=== PATIENT | female | born 1935 | race Caucasian/White ===

== ENCOUNTER 2017-01-31 07:13 | Inpatient (IN) | payer MEDICARE, OTHER ==
[2017-01-31] VITALS (17 sets, daily range): BP systolic 110–170; BP diastolic 51–113; PULSE 64–167; RESP 14–26; TEMP 98.4–98.9; O2SAT 95–98
[~2017-01-31] VITALS: Ht 154.9 cm; Wt 40.5 kg
[~2017-01-31 07:13] MED LIST: LEVA500T PO; Z.0.NO CURRENT MEDS
[2017-01-31] MEDS ORDERED: ACET500C PO (07:25)
[2017-01-31] MEDS ORDERED: DILTIAZEM HCL 25 MG/5 ML VIAL IV ONE (07:45)
[2017-01-31 07:48] LABS: AUTOMATED NEUTROPHIL # 9.2 TH/MM3 (1.8-7.7); BASOPHIL # 0.2 TH/MM3 (0-0.2); BASOPHIL % 1.6 % (0.0-2.0); EOSINOPHIL # 0.1 TH/MM3 (0-0.4); HEMATOCRIT 40.2 % (35.0-46.0); LYMPH % 10.3 % (9.0-44.0); LYMPHOCYTE # 1.1 TH/MM3 (1.0-4.8); MEAN CELL VOLUME 102.4 FL (80.0-100.0); MEAN CORPUSCULAR HEMOGLOBIN 33.8 PG (27.0-34.0); MONO % 4.3 % (0.0-8.0); NEUT % 82.8 % (16.0-70.0); PLATELET COUNT 243 TH/MM3 (150-450); RED BLOOD COUNT 3.93 MIL/MM3 (4.00-5.30); RED CELL DISTRIBUTION WIDTH 15.3 % (11.6-17.2); WHITE BLOOD COUNT 11.1 TH/MM3 (4.0-11.0)
--- NOTE | 2017-01-31 07:48 | PD ---
HPI Chief Complaint: General Weakness Time Seen by Provider: 07:29 Travel History International Travel<30 days: No Contact w/Intl Traveler<30days: No Traveled to known affect area: No History of Present Illness HPI This patient is brought in by her daughter and her sister. This patient for many months has been failing to thrive. She eats poorly and barely speaks barely gets out of bed. She has refused to go to any physician. She hasn't seen a physician in years. She falls frequently. She fell yesterday and hit the left side of her forehead. She arrives in A. fib with RVR with a rate of 170. She is on a helpful in providing any history or review of systems. Symptoms to look severe. Duration is months gradual worsening. No alleviating factors PFSH Past Medical History Medical History: Denies Significant Hx Cancer: No Cardiovascular Problems: No Diminished Hearing: No Endocrine: No Gastrointestinal Disorders: Yes (HERE FOR ?UGI BLEED (CGE)) Genitourinary: No Immune Disorder: No Musculoskeletal: No Neurologic: No Psychiatric: No Reproductive: No Respiratory: No Influenza Vaccination: No ?: Not Past Surgical History Surgical History: No Previous Surgery Gynecologic Surgery: Yes (HYSTERECTOMY) Other Surgery: Yes Social History Alcohol Use: Yes (3 BEERS DAILY) Tobacco Use: Yes (1/2 PPD) Substance Use: No Allergies-Medications (Allergen,Severity, Reaction): Coded Allergies: No Known Allergies (Unverified , 01/31/17) Reported Meds & Prescriptions Reported Meds & Active Scripts Active Reported Acetaminophen 500 Mg Cap 500 Mg PO Q4-6H PRN Review of Systems ROS Limitations: Clinical Condition, Uncooperative, Poor Historian Physical Exam Narrative GENERAL: Very malnourished and cachectic patient in no apparent distress. SKIN: Focused skin assessment reveals no rash and nodules. Skin is Warm and dry. She has several old bruises. She has a large ulcerated area over the distal right tibia. It looks chronic, somewhat necrotic. There is a very much smaller area on the left side. HEAD: Old wound on her left brow with some faded bruising on the right forehead. Normocephalic. EYES: Pupils equal and round. No scleral icterus. No injection or drainage. ENT: No nasal bleeding or discharge. Mucous membranes pink and moist. NECK: Trachea midline. No JVD. CARDIOVASCULAR: Irregularly irregular rhythm. No murmur appreciated. Rate 170 RESPIRATORY: No accessory muscle use. Clear to auscultation. Breath sounds equal bilaterally. GASTROINTESTINAL: Abdomen soft, non-tender, nondistended. Hepatic and splenic margins not palpable. MUSCULOSKELETAL: No obvious deformities. No clubbing. No cyanosis. No edema. NEUROLOGICAL: Awake and follows commands to some degree. No obvious cranial nerve deficits. Difficult to accurately gauge motor strength or sensation due to her limited participation. Speaks a few brief one-word answers. She did say her name. PSYCHIATRIC: Depressed mood and flat affect; insight and judgment poor . Data Data Last Documented VS Vital Signs Date Time Temp Pulse Resp B/P Pulse Ox O2 Delivery O2 Flow Rate FiO2 01/31/17 08:55 135 16 140/79 98 Room Air 01/31/17 07:22 98.9 Orders Diltiazem Inj (Cardizem Inj) (01/31/17 07:45) Iv Access Insert/Monitor (01/31/17 07:37) Complete Blood Count With Diff (01/31/17 07:37) Comprehensive Metabolic Panel (01/31/17 07:37) Prothrombin Time / Inr (Pt) (01/31/17 07:37) Act Partial Throm Time (Ptt) (01/31/17 07:37) Urinalysis - C+S If Indicated (01/31/17 07:37) Ct Brain W/O Iv Contrast(Rout) (01/31/17 ) Creatine Kinase (Cpk) (01/31/17 07:40) Thyroid Stimulating Hormone (01/31/17 07:40) Sodium Chlor 0.9% 1000 Ml Inj (Ns 1000 M (01/31/17 08:00) CKMB (01/31/17 07:43) CKMB% (01/31/17 07:43) Cath For Specimen (01/31/17 08:07) Diltiazem Inj (Cardizem Inj) (01/31/17 08:15) Labs Laboratory Tests Test 01/31/17 01/31/17 07:43 08:02 White Blood Count 11.1 TH/MM3 Red Blood Count 3.93 MIL/MM3 Hemoglobin 13.3 GM/DL Hematocrit 40.2 % Mean Corpuscular Volume 102.4 FL Mean Corpuscular Hemoglobin 33.8 PG Mean Corpuscular Hemoglobin 33.0 % Concent Red Cell Distribution Width 15.3 % Platelet Count 243 TH/MM3 Mean Platelet Volume 8.4 FL Neutrophils (%) (Auto) 82.8 % Lymphocytes (%) (Auto) 10.3 % Monocytes (%) (Auto) 4.3 % Eosinophils (%) (Auto) 1.0 % Basophils (%) (Auto) 1.6 % Neutrophils # (Auto) 9.2 TH/MM3 Lymphocytes # (Auto) 1.1 TH/MM3 Monocytes # (Auto) 0.5 TH/MM3 Eosinophils # (Auto) 0.1 TH/MM3 Basophils # (Auto) 0.2 TH/MM3 CBC Comment DIFF FINAL Differential Comment Prothrombin Time 10.8 SEC Prothromb Time International 1.0 RATIO Ratio Activated Partial 27.9 SEC Thromboplast Time Sodium Level 143 MEQ/L Potassium Level 3.9 MEQ/L Chloride Level 106 MEQ/L Carbon Dioxide Level 29.5 MEQ/L Anion Gap 8 MEQ/L Blood Urea Nitrogen 23 MG/DL Creatinine 0.62 MG/DL Estimat Glomerular Filtration 93 ML/MIN Rate Random Glucose 139 MG/DL Calcium Level 9.3 MG/DL Total Bilirubin 0.7 MG/DL Aspartate Amino Transf 51 U/L (AST/SGOT) Alanine Aminotransferase 40 U/L (ALT/SGPT) Alkaline Phosphatase 80 U/L Total Creatine Kinase 593 U/L Creatine Kinase MB 8.8 NG/ML Creatine Kinase MB % 1.5 % Total Protein 7.4 GM/DL Albumin 3.4 GM/DL Thyroid Stimulating Hormone 2.890 uIU/ML 3rd Gen Urine Collection Type CATH Urine Color YELLOW Urine Turbidity CLEAR Urine pH 5.5 Urine Specific [place] 1.025 Urine Protein 30 mg/dL Urine Glucose (UA) NEG mg/dL Urine Ketones NEG mg/dL Urine Occult Blood NEG Urine Nitrite NEG Urine Bilirubin NEG Urine Leukocyte Esterase NEG Urine WBC 0-2 /hpf Urine Squamous Epithelial 0-5 /hpf Cells Urine Hyaline Casts 0-2 /lpf Microscopic Urinalysis Comment CATH-CULT NOT IND Urine Collection Time 08:02 [facility] Medical Decision Making Medical Screen Exam Complete: Yes Emergency Medical Condition: Yes Medical Record Reviewed: Yes Differential Diagnosis A. fib with RVR, cachexia, malnourishment, failure to thrive, dehydration Narrative Course I have reviewed the patient's electronic medical record. Patient was here for GI bleed in 2011 at last visit Patient arrives critically ill. She has a heart rate of 170 and is very malnourished and failing to thrive Extended cardiac monitoring confirms A. fib with RVR I reviewed her EKG which shows A. fib with a very rapid rate IV placed I gave her a dose of IV Cardizem at 0.25 mg/kg I gave her IV normal saline CBC reasonably normal Metabolic profile normal LFTs show normal albumin TSH is normal CK slightly elevated with a normal MB percent Urinalysis catheterized shows no infection Brain CT shows a right sided subdural hematoma with 5 mm of midline shift Coagulation studies are normal Patient is critically ill and complex with multiple severe problems. She is very underweight and malnourished and in A. fib with RVR now on Cardizem drip, heart rate improved but still elevated now 130s down from 170s Multiple rechecks and a lot of bedside time has been spent I spoke with neurosurgeon regarding her brain bleeding I spoke with cloth napping supervisor for admission to the main ICU I spoke with family, daughter and sister. We discussed resuscitation status and they desire her to be DNR and I filled out the paperwork Critical Care Narrative Aggregate critical care time was 80 minutes. Time to perform other separately billable procedures was not included in the critical care time. My time did not include minutes spent treating any other patients simultaneously or on activities that did not directly contribute to the patient's treatment. The services I provided to this patient were to treat and/or prevent clinically significant deterioration that could result in: Cardiopulmonary arrest, cardiac arrhythmia, permanent neurologic disability, brain stem herniation I provided critical care services requiring my management, as noted below: Chart data review, documentation time, medication orders and management, vital sign assessments/reviewing monitor data, ordering and reviewing lab tests, ordering and interpreting/reviewing x-rays and diagnostic studies, care of the patient and discussion of the patient with the admitting physicians. Diagnosis Primary Impression: Subdural hematoma, post-traumatic Qualified Code: S06.5X0A - Subdural hematoma, post-traumatic, without LOC, initial encounter Additional Impressions: Atrial fibrillation with RVR Failure to thrive in adult Admitting Information Admitting Physician Requests: Admit Shaw Saenz MD Jan 31, 2017 07:48
[2017-01-31 07:49] LABS: HEMO FLAGS DIFF FINAL
[2017-01-31 07:57] LABS: CHLORIDE 106 MEQ/L (98-107); POTASSIUM 3.9 MEQ/L (3.5-5.1); SODIUM (NA) 143 MEQ/L (136-145)
[2017-01-31 07:59] LABS: APTT (PATIENT) 27.9 SEC (24.3-30.1); PROTHROMBIN TIME - PATIENT 10.8 SEC (9.8-11.6)
[2017-01-31] MEDS ORDERED: SODIUM CHLOR 0.9% 1000 ML INJ 1,000 ML IV ONE (08:00)
[2017-01-31 08:01] LABS: ANION GAP 8 MEQ/L (5-15); BICARBONATE 29.5 MEQ/L (21.0-32.0); BLOOD UREA NITROGEN 23 MG/DL (7-18)
[2017-01-31 08:04] LABS: ALT (GPT) 40 U/L (10-53); AST (GOT) 51 U/L (15-37); GLOMERULAR FILTRATION RATE 93 ML/MIN (>89)
[2017-01-31 08:05] LABS: TOTAL BILIRUBIN ADULT 0.7 MG/DL (0.2-1.0)
[2017-01-31 08:07] LABS: ALKALINE PHOSPHATASE 80 U/L (45-117)
[2017-01-31 08:11] LABS: BLOOD, URINE NEG (NEG); GLUCOSE,URINE NEG (NEG); KETONE, URINE NEG (NEG); NITRITE,URINE NEG (NEG); PH, URINE 5.5 (5.0-8.5)
[2017-01-31] MEDS ORDERED: DILTIAZEM INJ 125 MG in SODIUM CHLORIDE 0.9% INJ 100 ML IV SCH (08:15)
[2017-01-31 08:17] LABS: URINE COLOR YELLOW (YELLW/STRAW)
[2017-01-31 08:18] LABS: METHOD OF COLLECTION CATH
[2017-01-31 08:19] LABS: CKMB 8.8 NG/ML (0.5-3.6)
[2017-01-31 08:19] LABS: HYALINE CAST, URINE 0-2 /lpf (RARE); SQUAMOUS EPITHELIAL CELL URINE 0-5 /hpf (0-5); WBC, URINE 0-2 /hpf (0-5)
[2017-01-31 08:29] LABS: COMMENT (UR) CATH-CULT NOT IND; CULTURE IF INDICATED CATH CULTURE NOT IND
--- NOTE | 2017-01-31 09:13 | RADHPO ---
EXAM DATE/TIME: 01/31/2017 08:23 [facility] COMPARISON: No previous studies available for comparison. INDICATIONS : Trauma. Fell yesterday and hit the left side of her head. RADIATION DOSE: 62.55 CTDIvol (mGy) MEDICAL HISTORY : None SURGICAL HISTORY : Hysterectomy. ENCOUNTER: Initial ACUITY: 1 day PAIN SCALE: 4/10 LOCATION: Left cranial TECHNIQUE: Multiple contiguous axial images were obtained of the head. Using automated exposure control and adj ustment of the mA and/or kV according to patient size, radiation dose was kept as low as reasonably a chievable to obtain optimal diagnostic quality images. FINDINGS: CEREBRUM: Diffuse cortical and central atrophy with moderately severe periventricular small vessel ischemic dem yelination. Bilateral old lacunar infarcts identified in the right thalamus and anterior horn of the left internal capsule near the genu. There is a 4 mm acute subdural hematoma over the right cerebral convexity with an approximate 5 mm right to left subfalcine shift POSTERIOR FOSSA: The cerebellum and brainstem are intact. The 4th ventricle is midline. The cerebellopontine angle i s unremarkable. EXTRACRANIAL: The visualized portion of the orbits is intact. Soft tissue density is seen in the external auditory canals bilaterally, right greater than left. SKULL: The calvaria is intact. No evidence of skull fracture. CONCLUSION: 1. 4 mm right subdural hematoma over the cerebral convexity with a 5 mm right to left subfalcine shif t. 2. Chronic changes of cortical and central atrophy, moderately severe periventricular small vessel is chemic demyelination and old lacunar type infarcts in the right thalamus and left anterior limb of th e internal capsule. 3. Soft tissue density in the external auditory canals bilaterally. While this likely represents ceru men, with a recent history of trauma, I cannot exclude thrombus. Please correlate with clinical prese ntation/examination. Mina Jo MD on January 31, 2017 at 8:52 Board Certified Radiologist. This report was verified electronically.
--- NOTE | 2017-01-31 13:09 | HHI.HP ---
HPI Service Critical Care Medicine Primary Care Physician No Primary Care Physician Admission Diagnosis subdural hematoma, afib with RVR Diagnosis: (1) Subdural hematoma, post-traumatic Diagnosis: Principal (2) Atrial fibrillation with RVR Diagnosis: Principal (3) Failure to thrive in adult Diagnosis: Principal (4) Leukocytosis Diagnosis: Principal (5) Macrocytosis Diagnosis: Principal (6) Hyperglycemia Diagnosis: Principal (7) Tobacco abuse Diagnosis: Principal (8) Excessive cerumen in both ear canals Diagnosis: Principal Chief Complaint: Status post fall/weakness with A. fib with RVR Travel History International Travel<30 Days: No Contact w/Intl Traveler <30 Da: No Traveled to Known Affected Are: No History of Present Illness 81-year-old female. Date of admission 01/31/2017. Past medical history includes alcohol use, tobaccoism, otherwise unremarkable. Does have history upper GI bleed/gastric ulcer 2011. She has had a prolonged decline in function/failure to thrive and is been essentially bedbound times several months. She presents to [facility] via her family with chief complaint of fall yesterday when she struck the left side of her head after unwitnessed fall at home.. There is an abrasion of her left eyelid. CT head revealed a 4 mm right subdural hematoma at the central convex with a 5 mm right to left shift/subfalcine. 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 She is a white cell count 11,000. Elevated blood sugar 170. Otherwise remainder of the left is unremarkable. Upon presentation patient was noted be in A. fib with RVR. Given 10 mg Cardizem ICD and start a Cardizem drip at 5 an hour. TSH within normal limits. Troponin and magnesium pending. Echocardiogram is ordered. Neurosurgery was contacted by ED physician. Will be seeing consultation. We are asked to admit Upon presentation, patient is currently awake and alert. Heart rate better controlled in the 1 teens. Subjective weakness on the left side otherwise unremarkable exam Review of Systems Constitutional: COMPLAINS OF: Fatigue, DENIES: Fever, Weight gain, Weight loss Endocrine: DENIES: Polydipsia, Polyuria Eyes: DENIES: Blurred vision, Vision loss Ears, nose, mouth, throat: DENIES: Tinnitus, Hearing loss, Odynophagia Respiratory: DENIES: Apneas Cardiovascular: DENIES: Chest pain Gastrointestinal: DENIES: Abdominal pain, Nausea, Vomiting Genitourinary: DENIES: Urinary frequency Musculoskeletal: DENIES: Joint pain, Back pain, Neck pain Integumentary: DENIES: Abnormal pigmentation Hematologic/lymphatic: DENIES: Bruising Immunologic/allergic: DENIES: Eczema Neurologic: COMPLAINS OF: Headache, Poor Balance, DENIES: Localized weakness Psychiatric: COMPLAINS OF: Confusion, DENIES: Anxiety Past Family Social History Allergies: Coded Allergies: No Known Allergies (Unverified , 01/31/17) Past Medical History History of gastric ulcer Tobaccoism Alcohol use Past Surgical History Hysterectomy for uterine fibroids Reported Medications Acetaminophen Active Ordered Medications Reviewed in EMR Family History Mother and father is noncontributory to history of present illness Social History 3 beers daily. One half pack tobacco daily. Denies IV drug use. Physical Exam Vital Signs Vital Signs Date Time Temp Pulse Resp B/P Pulse Ox O2 Delivery O2 Flow Rate FiO2 01/31/17 13:00 110 14 110/69 98 Room Air 01/31/17 11:40 108 18 130/75 95 Room Air 01/31/17 10:40 144 18 114/75 96 Room Air 01/31/17 10:25 136 16 143/97 95 Room Air 01/31/17 10:10 130 16 129/75 95 Room Air 01/31/17 09:55 125 16 155/84 96 Room Air 01/31/17 09:40 142 152/113 95 Room Air 01/31/17 09:25 138 18 126/75 98 Room Air 01/31/17 09:10 134 17 134/97 95 Room Air 01/31/17 08:55 135 16 140/79 98 Room Air 01/31/17 07:33 98 Room Air 01/31/17 07:22 98.9 167 16 137/79 98 Physical Exam GENERAL: 81-year-old female, critically ill currently resting in bed in no acute distress SKIN: Warm and dry. Abrasion of left eye/evolving. Right greater than left below the knee necrotic ulceration area. Noted multiple bruising left elbow with open sores. Large ecchymoses right humerus. HEAD: Normocephalic. EYES: Pupils equal and round about 2-3 mm bilaterally and reactive. No scleral icterus. No injection or drainage. ENT: No nasal bleeding or discharge. Mucous membranes pink and moist. Bilateral cerumen impaction. Oropharynx with erythema. NECK: Trachea midline. No JVD. No lymphadenopathy, or bruit CARDIOVASCULAR: Tachycardia, IR. S1, S2 without murmur RESPIRATORY: Clear to auscultation bilaterally without wheezes rales or rhonchi. Breath sounds equal bilaterally. GASTROINTESTINAL: Abdomen soft, non-tender, nondistended. Will active bowel sounds. MUSCULOSKELETAL: Extremities with old right humerus fracture. No edema. See skin NEUROLOGICAL: Awake and alert. No obvious cranial nerve deficits. No facial droop. Tongue might deviate left but difficult to assess. Strength 4+5 left upper and lower extremity 5+ out of 5 right upper and lower extremity. Note this is subjective. Gives one to 2 word answers. Deep tendon reflexes grossly intact bilaterally upper and lower extremity. Normal sensation. Laboratory Laboratory Tests Test 01/31/17 01/31/17 07:43 08:02 White Blood Count 11.1 Red Blood Count 3.93 Hemoglobin 13.3 Hematocrit 40.2 Mean Corpuscular Volume 102.4 Mean Corpuscular Hemoglobin 33.8 Mean Corpuscular Hemoglobin 33.0 Concent Red Cell Distribution Width 15.3 Platelet Count 243 Mean Platelet Volume 8.4 Neutrophils (%) (Auto) 82.8 Lymphocytes (%) (Auto) 10.3 Monocytes (%) (Auto) 4.3 Eosinophils (%) (Auto) 1.0 Basophils (%) (Auto) 1.6 Neutrophils # (Auto) 9.2 Lymphocytes # (Auto) 1.1 Monocytes # (Auto) 0.5 Eosinophils # (Auto) 0.1 Basophils # (Auto) 0.2 CBC Comment DIFF FINAL Differential Comment Prothrombin Time 10.8 Prothromb Time International 1.0 Ratio Activated Partial 27.9 Thromboplast Time Sodium Level 143 Potassium Level 3.9 Chloride Level 106 Carbon Dioxide Level 29.5 Anion Gap 8 Blood Urea Nitrogen 23 Creatinine 0.62 Estimat Glomerular Filtration 93 Rate Random Glucose 139 Calcium Level 9.3 Total Bilirubin 0.7 Aspartate Amino Transf 51 (AST/SGOT) Alanine Aminotransferase 40 (ALT/SGPT) Alkaline Phosphatase 80 Total Creatine Kinase 593 Creatine Kinase MB 8.8 Creatine Kinase MB % 1.5 Total Protein 7.4 Albumin 3.4 Thyroid Stimulating Hormone 2.890 3rd Gen Urine Collection Type CATH Urine Color YELLOW Urine Turbidity CLEAR Urine pH 5.5 Urine Specific [place] 1.025 Urine Protein 30 Urine Glucose (UA) NEG Urine Ketones NEG Urine Occult Blood NEG Urine Nitrite NEG Urine Bilirubin NEG Urine Leukocyte Esterase NEG Urine WBC 0-2 Urine Squamous Epithelial 0-5 Cells Urine Hyaline Casts 0-2 Microscopic Urinalysis Comment CATH-CULT NOT IND Urine Collection Time 08:02 Result Diagram: 01/31/17 0743 01/31/17 0743 Imaging Last Impressions Head CT 01/31/17 0000 Signed Impressions: Service Date/Time: Tuesday, January 31, 2017 08:23 - CONCLUSION: 1. 4 mm right subdural hematoma over the cerebral convexity with a 5 mm right to left subfalcine shift. 2. Chronic changes of cortical and central atrophy, moderately severe periventricular small vessel ischemic demyelination and old lacunar type infarcts in the right thalamus and left anterior limb of the internal capsule. 3. Soft tissue density in the external auditory canals bilaterally. While this likely represents cerumen, with a recent history of trauma, I cannot exclude thrombus. Please correlate with clinical presentation/examination. Mina Jo MD Assessment and Plan Assessment and Plan Neuro/Psych: Right 4 mm subdural hematoma,/central convex Failure to thrive Left anterior capsule/right thalamus lacunar infarct/old EtOH CT head revealed a right subdural hematoma/4 mm of the central convexity with a 5 mm right to left subfalcine shift. Severe ischemic white matter changes. Old left anterior capsule/right thalamus lacunar infarct. Neurosurgery is been consulted will seeing consultation. Repeat repeat CT head in a.m. Neuro checks Thiamine/folate/multivitamin daily for EtOH use Monitor for DTs Check B12, TSH, ESR and RPR with failure to thrive CV: Atrial fibrillation with rapid ventricular response Currently in Cardizem drip at 10 mg an hour for heart rate management Will give 2 doses of digoxin 0.25 mg IV interval 6 hours each and check level in a.m. Echocardiogram ordered Troponins will be cycled first one pending check magnesium EKG upon arrival to floor Goal keep systolic blood pressure less than 150 with subdural hematoma Resp: Tobaccoism Nasal cannula to maintain saturations greater than equal to 92% Incentive spirometry while awake Tobacco cessation education will be provided Follow-up chest x-ray Head of bed at 30 GI: Patient is currently nothing by mouth Protonix for GI prophylaxis Colace/as needed Senokot for bowel regimen : Vernon has been placed for accurate I's and O's in a critically ill patient Endo: Hyperglycemia Sliding-scale insulin to maintain euglycemia/low regimen with Accu-Cheks every 6 hours Renal: Mild rhabdo likely secondary to fall Creatinine currently within normal limits Accurate I's and O's Monitor urine output On normal saline at 84 cc an hour Repeat CPK in a.m. Heme: Leukocytosis Macrocytosis Follow-up CBC daily. Monitor trends. Coags within normal limits ID: Monitor for infection UA negative FEN: Replace electrolytes as clinically indicated MSK: Right upper extremity swelling Bilateral lower lobe chronic wounds Will CT C-spine/lumbar and thoracic spine along with chest/abdomen and pelvis CT right shoulder rule out dislocation Doppler right upper extremity Wound care evaluate and treat Access - Utilize peripheral IV. Central line if indicated Prophylaxis - GI - Protonix - DVT - SCDs/pharmacological prophylaxis contraindicated with subdural hematoma Critical Care: The total critical care time was 55 minutes. Time to perform other separately billable procedures was not included in the critical care time. Code Status DNR Discussed Condition With ED physician Mikey . Care plan discussed and all questions answered. Problem Qualifiers (1) Subdural hematoma, post-traumatic: Qualified Code: S06.5X0A - Subdural hematoma, post-traumatic, without LOC, initial encounter (2) Leukocytosis: Qualified Code: D72.829 - Leukocytosis, unspecified type Wai Garcia MD Jan 31, 2017 13:07
[2017-01-31] MEDS ORDERED: levETIRAcetam 1000 MG INJ 100 ML IV ONE (13:15)
[2017-01-31] MEDS ORDERED: niCARdipine INJ 25 MG in SODIUM CHLOR 0.9% 250 ML INJ 250 ML IV SCH (13:15)
[2017-01-31] MEDS ORDERED: SODIUM CHLORIDE 0.9% FLUSH 10 ML FLUSH IV FLUSH PRN ×2 (13:15→13:30)
[2017-01-31] MEDS ORDERED: ACETAMINOPHEN 325 MG TAB PO PRN (13:15)
[2017-01-31] MEDS ORDERED: ACETAMINOPHEN 650 MG SUPP RECTAL PRN (13:15)
[2017-01-31] MEDS ORDERED: ONDANSETRON HCL 4 MG/2 ML VIAL IV PRN ×2 (13:15→13:30)
[2017-01-31] MEDS ORDERED: FOLIC ACID 1 MG TAB PO ONE (13:30)
[2017-01-31] MEDS ORDERED: GLUCAGON 1 MG/ML VIAL OTHER PRN (13:30)
[2017-01-31] MEDS ORDERED: MISCELLANEOUS NURSING INFORMATION XX SCH (13:30)
[2017-01-31] MEDS ORDERED: DEXTROSE 50% IN WATER 50 ML VIAL(D50) IV PUSH PRN (13:30)
[2017-01-31] MEDS ORDERED: RESP: ALBUTEROL 2.5 MG/3 ML NEB (PRN) INH (13:30)
[2017-01-31] MEDS ORDERED: SENNOSIDES 8.6 MG TAB PO PRN (13:30)
[2017-01-31] MEDS ORDERED: CHLORHEXIDINE GLUCONATE 2 % 1 PACK (2 CLOTHS) TOP PRN (13:30)
[2017-01-31] MEDS ORDERED: NITROGLYCERIN 2% OINT 1 GM PACKET TOPICAL PRN (13:30)
[2017-01-31] MEDS ORDERED: THIAMINE INJ 100 MG in SODIUM CHLORIDE 0.9% INJ 100 ML IV ONE (13:30)
[2017-01-31] MEDS ORDERED: DIGOXIN 0.5 MG/2 ML VIAL IV PUSH ONE ×2 (14:00→20:00)
[2017-01-31] MEDS: SODIUM CHLOR 0.9% 1000 ML INJ 1,000 ML IV SCH (14:25)
--- NOTE | 2017-01-31 14:34 | RADRPT ---
EXAM DATE/TIME: 01/31/2017 14:11 [facility] COMPARISON: No previous studies available for comparison. INDICATIONS : Patient has been short of breath since this morning. MEDICAL HISTORY : None. SURGICAL HISTORY : None. ENCOUNTER: Subsequent ACUITY: 4 - 6 days PAIN SCORE: 0/10 LOCATION: Bilateral chest FINDINGS: Heart is enlarged. There is mild interstitial edema present. There is no pneumothorax. CONCLUSION: Cardiomegaly with mild to moderate congestive failure. Placido Mantilla MD FACR on January 31, 2017 at 14:28 Board Certified Radiologist. This report was verified electronically.
[2017-01-31] MEDS ORDERED: IOHEXOL 350 MG/ML 10 ML VIAL (for RAD DIAG) IV ONE (16:02)
--- NOTE | 2017-01-31 16:23 | RADRPT ---
EXAM DATE/TIME: 01/31/2017 15:13 [facility] COMPARISON: CHEST SINGLE AP, January 31, 2017, 14:11. INDICATIONS : Fell yesterday. RADIATION DOSE: ; Reconstructed from previous dataset MEDICAL HISTORY : None SURGICAL HISTORY : Hysterectomy. ENCOUNTER: Initial ACUITY: 2 days PAIN SCALE: 5/10 LOCATION: Right shoulder TECHNIQUE: Volumetric scanning of the shoulder was performed. Using automated exposure control and adjustment o f the mA and/or kV according to patient size, radiation dose was kept as low as reasonably achievable to obtain optimal diagnostic quality images. FINDINGS: There is an oblique fracture through the proximal right humerus with sclerotic margins. There is no fracture deformity of the ureteral neck as well. The glenohumeral joint is intact with mild degen erative change. The acromioclavicular joint is intact as well. There is mild osteopenia. The visualiz ed ribs are intact. There is a small to moderate right pleural effusion noted. CONCLUSION: 1. Old fracture deformity of the right humerus. 2. No acute fracture or malalignment. 3. Small to moderate right pleural effusion. Tim Rivers MD on January 31, 2017 at 16:18 Board Certified Radiologist. This report was verified electronically.
--- NOTE | 2017-01-31 16:25 | RADRPT ---
EXAM DATE/TIME: 01/31/2017 15:15 [facility] COMPARISON: No previous studies available for comparison. INDICATIONS : Fell yesterday. IV CONTRAST: 80 cc Omnipaque 350 (iohexol) IV ; Cumulative dose for multiple exams. RADIATION DOSE: 9.96 CTDIvol (mGy) ; Combined studies - Thorax/Abdomen/Pelvis MEDICAL HISTORY : None SURGICAL HISTORY : Hysterectomy. ENCOUNTER: Initial ACUITY: 2 days PAIN SCALE: 4/10 LOCATION: chest TECHNIQUE: Volumetric scanning of the chest was performed. Using automated exposure control and adjustment of t he mA and/or kV according to patient size, radiation dose was kept as low as reasonably achievable to obtain optimal diagnostic quality images. FINDINGS: LUNGS: There is no pneumothorax. There is mild consolidation in the posterior lung bases. No concerning pulm onary nodule is visualized. PLEURA: There are bilateral pleural effusions moderate on the right and small and the left. MEDIASTINUM: The heart and great vessels demonstrate no acute abnormality. There is no mediastinal or hilar lymph adenopathy. AXILLAE: Within normal limits. No lymphadenopathy. SKELETAL: There is no fracture or the right humeral head and neck is ununited. There is no acute fracture or ma lalignment identified. MISCELLANEOUS: The visualized upper abdominal organs demonstrate no acute abnormality. CONCLUSION: 1. Old fracture deformities of the right humerus again noted. 2. No acute fracture or malalignment. 3. Bilateral pleural effusions right greater than left with mild consolidation in the posterior lung bases. Tim Rivers MD on January 31, 2017 at 16:22 Board Certified Radiologist. This report was verified electronically.
--- NOTE | 2017-01-31 16:30 | RADRPT ---
EXAM DATE/TIME: 01/31/2017 15:15 [facility] COMPARISON: No previous studies available for comparison. INDICATIONS : Fell yesterday. IV CONTRAST: 80 cc Omnipaque 350 (iohexol) IV ; Cumulative dose for multiple exams. ORAL CONTRAST: No oral contrast ingested. RADIATION DOSE: 9.96 CTDIvol (mGy) ; Combined studies - Thorax/Abdomen/Pelvis MEDICAL HISTORY : Non-responsive. SURGICAL HISTORY : Hysterectomy. ENCOUNTER: Initial ACUITY: 2 days PAIN SCALE: 4/10 LOCATION: Bilateral abdomen TECHNIQUE: Volumetric scanning of the abdomen and pelvis was performed. Using automated exposure control and ad justment of the mA and/or kV according to patient size, radiation dose was kept as low as reasonably achievable to obtain optimal diagnostic quality images. FINDINGS: LOWER LUNGS: There are bilateral pleural effusions again noted right greater than left with mild consolidation in the posterior lung bases. The heart size appears mildly prominent. LIVER: Homogeneous density without lesion. There is no dilation of the biliary tree. No calcified gallston es. SPLEEN: Normal size without lesion. PANCREAS: Within normal limits. KIDNEYS: Normal in size and shape. There is no mass, stone or hydronephrosis. ADRENAL GLANDS: Within normal limits. VASCULAR: There is no aortic aneurysm. BOWEL/MESENTERY: There is a nonspecific, nonobstructive bowel gas pattern with multiple loops of nondilated small dylan l with multiple air-fluid levels. There is no definite free air or fluid. The bowel is unopacified li miting sensitivity. There is a moderate amount of stool present greatest distally which could indicat e constipation. ABDOMINAL WALL: Within normal limits. RETROPERITONEUM: There is no lymphadenopathy. BLADDER: No wall thickening or mass. REPRODUCTIVE: Within normal limits. INGUINAL: There is no lymphadenopathy or hernia. MUSCULOSKELETAL: Within normal limits for patient age. Osteopenia and degenerative changes are present. There is no vi sualized fracture. CONCLUSION: 1. No evidence of visceral injury or fracture. 2. Nonspecific bowel gas pattern which appears nonobstructive with moderate amount of stool distally which could indicate constipation. 3. Bilateral pleural effusions right greater than left with mild consolidation in the lung bases. Tim Rivers MD on January 31, 2017 at 16:25 Board Certified Radiologist. This report was verified electronically.
--- NOTE | 2017-01-31 16:33 | RADRPT ---
EXAM DATE/TIME: 01/31/2017 15:15 [facility] COMPARISON: No previous studies available for comparison. INDICATIONS : Fell yesterday. RADIATION DOSE: ; Reconstructed from previous dataset MEDICAL HISTORY : None SURGICAL HISTORY : Hysterectomy. ENCOUNTER: Initial ACUITY: 2 days PAIN SCALE: 3/10 LOCATION: Back TECHNIQUE: Volumetric scanning of the thoracic spine was performed. Multiplanar reconstructions in the sagittal, coronal and oblique axial planes were performed. Using automated exposure control a nd adjustment of the mA and/or kV according to patient size, radiation dose was kept as low as reason ably achievable to obtain optimal diagnostic quality images. FINDINGS: There is marked Gibbus deformity evident with good preservation of vertebral body heigh ts. There is minimal loss of disc space height. Bones are diffusely osteoporotic. I do not see a displaced fracture. A subtle nondisplaced fracture would be difficult to exclude. There is a small right pleural effusion. Trace effusion is seen on the left. Extensive vascular calcifications are noted. CONCLUSION: 1. Extensive Gibbus deformity with diffuse osteopenia. Compression fracture is not appreciated. Sub tle fractures would be difficult to exclude. 2. Moderate right pleural effusion. 3. Small left pleural effusion. Placido Mantilla MD FACR on January 31, 2017 at 16:21 Board Certified Radiologist. This report was verified electronically.
[2017-01-31 16:36] LABS: MAGNESIUM 2.1 MG/DL (1.5-2.5)
--- NOTE | 2017-01-31 16:49 | RADRPT ---
EXAM DATE/TIME: 01/31/2017 15:15 [facility] COMPARISON: No previous studies available for comparison. INDICATIONS : Fell yesterday. RADIATION DOSE: ; Reconstructed from previous dataset MEDICAL HISTORY : None SURGICAL HISTORY : Hysterectomy. ENCOUNTER: Initial ACUITY: 2 days PAIN SCALE: 4/10 LOCATION: back TECHNIQUE: Volumetric scanning of the lumbar spine was performed. Multiplanar reconstructions in the sagittal, coronal and oblique axial planes were performed. Using automated exposure control and adjustment of the mA and/or kV according to patient size, radiation dose was kept as low as reasonably achievable t o obtain optimal diagnostic quality images. FINDINGS: VERTEBRAE: Normal vertebral body height. ALIGNMENT: No evidence of subluxation. T12-L1: The thecal sac has a normal diameter. No evidence of disc bulge or protrusion. The neural foramina are patent bilaterally. L1-L2: The thecal sac has a normal diameter. No evidence of disc bulge or protrusion. The neural foramina are patent bilaterally. L2-L3: The thecal sac has a normal diameter. No evidence of disc bulge or protrusion. The neural foramina are patent bilaterally. L3-L4: The thecal sac has a normal diameter. No evidence of disc bulge or protrusion. The neural foramina are patent bilaterally. L4-L5: The thecal sac has a normal diameter. There is a mild disc bulge. There is degenerative change involv ing facet joints. The neural foramina are patent bilaterally. L5-S1: The thecal sac has a normal diameter. There is a mild disc bulge. There are degenerative changes invo lving facet joints.. The neural foramina are patent bilaterally. CONCLUSION: 1. No acute fracture or malalignment. 2. Mild disc bulges at the L4-5 and L5-S1 levels 3. Osteopenia and degenerative joint changes involving the lower facets. Tim Rivers MD on January 31, 2017 at 16:44 Board Certified Radiologist. This report was verified electronically.
--- NOTE | 2017-01-31 16:57 | RADRPT ---
EXAM DATE/TIME: 01/31/2017 15:13 [facility] COMPARISON: No previous studies available for comparison. INDICATIONS : Fell yesterday. RADIATION DOSE: 25.47 CTDIvol (mGy) MEDICAL HISTORY : None SURGICAL HISTORY : Hysterectomy. ENCOUNTER: Initial ACUITY: 2 days PAIN SCALE: 4/10 LOCATION: neck TECHNIQUE: Volumetric scanning of the cervical spine was performed. Multiplanar reconstructions in the sagittal, coronal and oblique axial planes were performed. Using automated exposure control and adjustment o f the mA and/or kV according to patient size, radiation dose was kept as low as reasonably achievable to obtain optimal diagnostic quality images. FINDINGS: Sagittal images demonstrate normal vertebral body alignment and curvature. The odontoid is intact. Th e occipital condyles and lateral masses of C1 are intact. Axial images were performed from C2-C3 to C7-T1. The neck is flexed to the right. There is heavy calcification of the carotid bifurcations. Ul trasound examination is recommended if clinically indicated. Biapical pleural thickening is present. C2-C3: No significant abnormalities identified. C3-C4: There is osteophytic ridging along the posterior aspect of vertebral body. There is no significant sp inal canal stenosis. The neural foramina are clear bilaterally. C4-C5: There is no evidence of disc protrusion or spinal canal stenosis. The neural foramina are clear bilat erally. There is mild facet arthritis on the left. C5-C6: There is no evidence of disc protrusion or spinal canal stenosis. There is moderate facet arthritis o n the left. The neural foramina are clear bilaterally. C6-C7: There is osteophytic ridging along the posterior aspect of vertebral body. There is no significant sp inal canal stenosis. C7-T1: No significant abnormalities identified. CONCLUSION: 1. Moderate degenerative changes as described above. There is no evidence of acute fracture. Jaguar Valero MD on January 31, 2017 at 16:51 Board Certified Radiologist. This report was verified electronically.
[2017-01-31] MEDS: LABETALOL HCL 100 MG/20 ML VIAL IV PRN ×2 (17:40→21:32)
[2017-01-31] MEDS: INSULIN NovoLIN REGULAR SUPPLEMENTAL SCALE SQ SCH (18:00)
[2017-01-31] MEDS: ARTIFICIAL TEARS OPTH SOLN 15 ML BTL EACH EYE SCH (18:00)
--- NOTE | 2017-01-31 19:01 | EC ---
Study Study Date:01/31/2017 STUDY CONCLUSIONS SUMMARY - Left ventricle: The cavity size was normal. Wall thickness was increased in a pattern of moderate LVH. Systolic function was hyperdynamic. The estimated ejection fraction was 70%. Wall motion was normal; there were no regional wall motion abnormalities. - Aortic valve: Transvalvular velocity was increased. There was severe stenosis. Moderate regurgitation. Mean gradient: 52mm Hg (S). Peak gradient: 90mm Hg (S). Valve area: 0.61cm^2(VTI). Valve area: 0.86cm^2 (Vmax). - Mitral valve: Severely calcified annulus. Moderately thickened leaflets, . Moderate regurgitation. - Left atrium: The atrium was dilated. - Pulmonary arteries: Systolic pressure was moderately increased. PA peak pressure: 57mm Hg (S). If LV function is below 40, please consider prescribing an ACEI or ARB or document rationale for non-use. PROCEDURE DATA STUDY STATUS: Elective. Procedure: Transthoracic echocardiography. Image quality was good. Scanning was performed from the parasternal, apical, and subcostal acoustic windows. Study completion: The patient tolerated the procedure well. Transthoracic echocardiography. M-mode, complete 2D, complete spectral Doppler, and color Doppler. Height: Height: 61in. Weight: Weight: 84.8lb. Body mass index: BMI: 16.1kg/m^2. Body surface area: BSA: 1.31m^2. Patient status: Inpatient. CARDIAC ANATOMY LEFT VENTRICLE: The cavity size was normal. Wall thickness was increased in a pattern of moderate LVH. Systolic function was hyperdynamic. The estimated ejection fraction was 70%. Wall motion was normal; there were no regional wall motion abnormalities. AORTIC VALVE: Trileaflet; severely thickened, severely calcified leaflets. Doppler: Transvalvular velocity was increased. There was severe stenosis. Moderate regurgitation. Valve area: 0.61cm^2(VTI). Indexed valve area: 0.47cm^2/m^2 (VTI). Valve area: 0.86cm^2 (Vmax). Indexed valve area: 0.66cm^2/m^2 (Vmax). Mean gradient: 52mm Hg (S). Peak gradient: 90mm Hg (S). AORTA: Aortic root: The aortic root was normal in size. MITRAL VALVE: Severely calcified annulus. Moderately thickened leaflets, . Doppler: Transvalvular velocity was within the normal range. There was no evidence for stenosis. Moderate regurgitation. Peak gradient: 13mm Hg (D). LEFT ATRIUM: The atrium was dilated. RIGHT VENTRICLE: The cavity size was normal. Wall thickness was normal. PULMONIC VALVE: Doppler: Transvalvular velocity was within the normal range. There was no evidence for stenosis. No regurgitation. TRICUSPID VALVE: Structurally normal valve. Doppler: Transvalvular velocity was within the normal range. No regurgitation. PULMONARY ARTERY: The main pulmonary artery was normal-sized. Systolic pressure was moderately increased. RIGHT ATRIUM: The atrium was normal in size. PERICARDIUM: There was no pericardial effusion. SYSTEMIC VEINS: Inferior vena cava: The vessel was normal in size. Patient weight: 84.8lb _Ejection fraction:_ 65-75% _Fractional shortening:_ 32% up to 5Kg 5-11.5Kg 11.6-22.9Kg 23-45Kg 45-57Kg Aortic Root 7-13 <17 13-22 17-27 17-27 LA diam 6-13 <23 24-38 33-47 37-40 RVID 10-17 7-15 7-15 7-18 8-17 LVIDd 12-22 <32 24-38 33-47 37-40 LVPW 2-4 3-6 5-7 6-8 7-8 IVS 2-4 3-6 5-7 6-8 7-8 BASIC MEASUREMENTS ADULT NORMAL Left ventricle LV internal dimension, ED, chordal 43.3 mm 43-52 level, PLAX LV internal dimension, ES, chordal 25.9 mm 23-38 level, PLAX Fractional shortening, chordal level, 40 % >29 PLAX LV posterior wall thickness, ED 12.7 mm IVS/LVPW ratio, ED 0.99 <1.3 Ventricular septum Septal thickness, ED 12.6 mm Aorta Root diameter, ED 28 mm Left atrium Anterior-posterior dimension 37 mm Anterior-posterior dimension index *2.82 cm/m^2 <2.2 DOPPLER MEASUREMENTS ADULT NORMAL Main pulmonary artery Pressure, S *57 mm Hg =30 Aortic valve Peak velocity, S 474 cm/s Mean velocity, S 331 cm/s VTI, S 78.1 cm Mean gradient, S 52 mm Hg Peak gradient, S 90 mm Hg Valve area, VTI 0.61 cm^2 Valve area index, VTI 0.47 cm^2/m^2 Valve area, Vmax 0.86 cm^2 Valve area index, Vmax 0.66 cm^2/m^2 Mitral valve Peak E-wave velocity 178 cm/s Deceleration time *144 ms 150-230 Peak gradient, D 13 mm Hg Tricuspid valve Regurgitant peak velocity 297 cm/s Peak RV-RA gradient, S 35 mm Hg Maximal regurgitant velocity 297 cm/s Right ventricle RV pressure, S *61 mm Hg <30 Pulmonic valve Peak velocity, S 95.6 cm/s LEGEND: Mean values are shown as u=mean value. Asterisk (*) shah values outside specified normal range. Prepared and signed by Erick Lewis [id number]
--- NOTE | 2017-01-31 19:17 | PD.CONS ---
REASON FOR CONSULTATION: Right convexity subdural hematoma HISTORY OF PRESENT ILLNESS: 81 year old with history of hypertension and failure to thrive and bed bound for several months. Per records, family described an unwitnessed fall with head trauma. Upon presentation patient was found to be on Afib with AVR. Started on a cardizem drip. 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 Patient is DNR. PAST MEDICAL HISTORY: summarized in HPI PAST SURGICAL HISTORY: no intracranial or spinal surgeries PAST SOCIAL HISTORY: smoker, + ETOH FAMILY HISTORY: no intracranial or spinal conditions ALLERGIES: NKDA MEDICATIONS: Active Medications Acetaminophen (Tylenol) 650 mg Q4H PRN PO; Start 01/31/17 at 13:15 Acetaminophen 650 mg 650 mg Q4H PRN RECTAL; Start 01/31/17 at 13:15 Artificial Tears (Tears Naturale Opth Soln) 1 drop TID EACH EYE; Start 01/31/17 at 18:00 Chlorhexidine Gluconate (Chlorhexidine 2% Cloth) 3 pack UNSCH PRN TOP; Start at 13:30 Chlorhexidine Gluconate (Chlorhexidine 2% Cloth) 3 pack Taper DAILY@04 TOP; Start 02/01/17 at 04:00; Stop 01/28/18 at 03:59 Dextrose (D50w (Vial) Inj) 25 ml UNSCH PRN IV PUSH; Start 01/31/17 at 13:30 Digoxin (Lanoxin Inj) 0.25 mg ONCE ONCE IV PUSH Last administered on 01/31/17 14:24; Admin Dose 0.25 MG; Start 01/31/17 at 14:00; Stop 01/31/17 at 14:01; Status DC Digoxin (Lanoxin Inj) 0.25 mg ONCE ONCE IV PUSH; Start 01/31/17 at 20:00; Stop 01/31/17 at 20:01 Diltiazem HCl 10 mg 10 mg ONCE ONCE IV Last administered on 01/31/17 07:48; Admin Dose 10 MG; Start 01/31/17 at 07:45; Stop 01/31/17 at 07:46; Status DC Diltiazem HCl 125 mg/Sodium Chloride 125 ml @ 5 mls/hr TITRATE IV Last administered on 01/31/17 09:01; Admin Dose 5 MLS/HR; Start 01/31/17 at 08:15 Docusate Sodium (Colace) 100 mg BID PO; Start 01/31/17 at 21:00 Folic Acid (Folate) 1 mg DAILY PO; Start 02/01/17 at 09:00 Folic Acid (Folate) 1 mg ONCE ONCE PO Last administered on 01/31/17 14:24; Admin Dose 1 MG; Start 01/31/17 at 13:30; Stop 01/31/17 at 13:31; Status DC Glucagon (Glucagon Inj) 1 mg UNSCH PRN OTHER; Start 01/31/17 at 13:30 Hydralazine HCl (Apresoline Inj) 10 mg Q1HR PRN IV PUSH; Start 01/31/17 at 13: 30 Insulin Human Regular 1 1 Q6HR SQ; Start 01/31/17 at 18:00 Iohexol (Omnipaque 350 Inj) 80 ml STK-MED ONCE IV Last administered on 16:02; Admin Dose 80 ML; Start 01/31/17 at 16:02; Stop 01/31/17 at 16:03; Status DC Labetalol HCl 10 mg 10 mg Q1HR PRN IV Last administered on 01/31/17 17:40; Admin Dose 10 MG; Start 01/31/17 at 13:15 Levetriacetam 100 ml @ 400 mls/hr ONCE ONCE IV Last administered on 01/31/17 14:25; Admin Dose 400 MLS/HR; Start 01/31/17 at 13:15; Stop 01/31/17 at 13:29; Status DC Levetriacetam/ Sodium Chloride (Keppra Inj/NS Inj) 105 ml @ 400 mls/hr Q12H IV ; Start 02/01/17 at 02:00 Miscellaneous Information 1 [id number] Last administered on 01/31/17 14:25; Admin Dose 1; Start 01/31/17 at 13:30 Multivitamins (Theragran) 1 tab DAILY PO; Start 02/01/17 at 09:00 Nicardipine HCl/ Sodium Chloride (Cardene Inj/NS 250 ml Inj) 260 ml @ 0 mls/hr TITRATE IV Last administered on 01/31/17 14:26; Admin Dose 0 MLS/HR; Start at 13:15 Nitroglycerin (Nitroglycerin 2% Oint) 1 inch Q6HR PRN TOPICAL; Start 01/31/17 at 13:30 Ondansetron HCl (Zofran Inj) 4 mg Q6H PRN IV; Start 01/31/17 at 13:15 Ondansetron HCl (Zofran Inj) 4 mg Q6H PRN IV; Start 01/31/17 at 13:30 Pantoprazole Sodium (Protonix Inj) 40 mg DAILY IV; Start 02/01/17 at 09:00 Pantoprazole Sodium (Protonix Inj) 40 mg DAILY IVP; Start 02/01/17 at 09:00 Sennosides (Senokot) 17.2 mg Q12H PRN PO; Start 01/31/17 at 13:30 Sodium Chloride 1,000 ml @ 250 mls/hr Q4H ONCE IV Last administered on 07:51; Admin Dose 250 MLS/HR; Start 01/31/17 at 08:00; Stop 01/31/17 at 11: 59; Status DC Sodium Chloride (NS 1000 ml Inj) 1,000 ml @ 70 mls/hr [id number] IV Last administered on 01/31/17 14:25; Admin Dose 70 MLS/HR; Start 01/31/17 at 13:12 Sodium Chloride (NS Flush) 2 ml BID IV FLUSH; Start 01/31/17 at 21:00 Sodium Chloride (NS Flush) 2 ml BID IV FLUSH; Start 01/31/17 at 21:00; Status UNV Sodium Chloride (NS Flush) 2 ml UNSCH PRN IV FLUSH; Start 01/31/17 at 13:15 Sodium Chloride (NS Flush) 2 ml UNSCH PRN IV FLUSH; Start 01/31/17 at 13:30; Status UNV Thiamine HCl 100 mg/Sodium Chloride 101 ml @ 101 mls/hr ONCE ONCE IV Last administered on 01/31/17 16:08; Admin Dose 101 MLS/HR; Start 01/31/17 at 13:30 ; Stop 01/31/17 at 14:29; Status DC Thiamine HCl/ Sodium Chloride (Thiamine Inj/NS Inj) 101 ml @ 101 mls/hr DAILY IV; Start 02/01/17 at 09:00 REVIEW OF SYSTEMS: Constitutional: fatigue. Eyes: no infection, blurred or double vision. Cardiovascular: palpitations. Gastrointestinal: no nausea, vomiting or diarrhea. Genitourinary: no incontinence or painful urination. Neurological: look at HPI Hematologic: easy bruising Musculoskeletal: limited right shoulder movement Endocrine: no unexplained changes in weight Integumentary: multiple abrasions in upper and lower extremities. Lower extremities ulcers. PHYSICAL EXAMINATION: VITALS SIGNS: Vital Signs Date Time Temp Pulse Resp B/P Pulse Ox O2 Delivery O2 Flow Rate FiO2 01/31/17 16:00 98.6 108 26 170/70 96 01/31/17 13:00 Room Air HEENT: Normocephalic/atraumatic. No facial dysmorphic features are present. Eyes, ears, nose and throat are normal and mucous membranes are moist. SKIN: multiple abrasions in upper and lower extremities. CV: irregular. ABD: benign, soft, flat, and without hepatosplenomegaly or tenderness. EXTREM: warm. NEUROLOGICAL EXAMINATION: MENTAL STATUS: The patient is awake, alert and fully oriented. Answers with simple phrases.. CRANIAL NERVES: Pupils are equal, round, and reactive to light accommodation. Visual aguirre are full. No vertical or horizontal nyastagmus is noted and visual pursuits were smooth. Gaze is conjugate and extraocular movements are full and without limitation. Face symmetric, tongue midline. Shoulder shrug and sternocleidomastiod strength symmetric and strong. MOTOR: Muscle strength : symmetric 5/5 but right proximal arm limited examination due to shoulder pain. SENSORY: unremarkable to light touch and pinprick throughout. REFLEXES: 2+ and symmetric bilaterally. No hyperreflexia or pathological reflexes noted. GAIT: not tested RELEVANT LABORATORY DATA: CBC Diagram 01/31/17 07:43 BMP Diagram 01/31/17 07:43 Laboratory Tests Test 01/31/17 07:43 Prothrombin Time 10.8 SEC (9.8-11.6) Prothromb Time International 1.0 RATIO Ratio ASSESSMENT: Small Right subdural hematoma with minimal midline shift RECOMMENDATIONS: 1. Patient is DNR. 2. No need for neurosurgical intervention. 3. Continue Keppra for seizure prophylaxis. 4. Hold anticoagulation due to acute subdural hematoma. Thank you for allowing me to participate in the care of your patient. If I can be of future assistance or should you have any questions about this or any other patient, please do not hesitate to contact me. Dagoberto Broderick M.D. [facility] Neurosurgeon Pager [phone] Dagoberto Witt MD Jan 31, 2017 19:17
[2017-01-31] MEDS: DOCUSATE SODIUM 100 MG CAP PO SCH (20:57)
[2017-01-31] MEDS: SODIUM CHLORIDE 0.9% FLUSH 10 ML FLUSH IV FLUSH SCH (20:58)
[2017-01-31] MEDS ORDERED: SODIUM CHLORIDE 0.9% FLUSH 10 ML FLUSH IV FLUSH SCH (21:00)
--- NOTE | 2017-01-31 21:41 | RADRPT ---
EXAM DATE/TIME: 01/31/2017 19:31 [facility] COMPARISON: No previous studies available for comparison. INDICATIONS : Right arm swelling. MEDICAL HISTORY : Hypertension. Gastrointestinal bleed. Subdural hematoma. SURGICAL HISTORY : Hysterectomy. ENCOUNTER: Initial ACUITY: 1 day PAIN SCORE: 0/10 LOCATION: Right arm. FINDINGS: There is spontaneous flow documented in the brachial, basilic, cephalic, axillary, and subclavian vei ns. The vessels are compressible and augmentation response is documented. No filling defects are se en. The flow is phasic with respiration. Direction of flow in the jugular vein is caudal. CONCLUSION: No DVT. Alvin Roche MD on January 31, 2017 at 21:39 Board Certified Radiologist. This report was verified electronically.
--- NOTE | 2017-01-31 22:25 | MB ---
cc: YOKASTA LARIOS MD DATE OF CONSULTATION 01/31/17 HISTORY OF PRESENT ILLNESS A 81 year old white female with a history of upper GI bleeding and gastric ulcer who was admitted after a fall when she struck the side of the head at home. She has had failure to thrive and has been bed-bound for several months. She was found to have right subdural hematoma. She was found to be in atrial fibrillation with rapid ventricular response. PAST MEDICAL HISTORY 1. Gastric ulcer 2. Hysterectomy for uterine fibroids MEDICATIONS Acetaminophen ALLERGIES None. SOCIAL HISTORY The patient is a smoker. She drinks beer daily. FAMILY HISTORY Negative for heart disease REVIEW OF SYSTEMS Otherwise negative. PHYSICAL EXAMINATION VITAL SIGNS: Blood pressure 170/70, pulse 108 and regular. HEENT: Negative, 2+ carotid upstrokes LUNGS: Clear. HEART: Irregularly irregular with harsh 3/6 systolic murmur at the right upper sternal border. ABDOMEN: Soft, no bruits. EXTREMITIES: Without edema, 2+ distal pulses. NEUROLOGIC: Grossly nonfocal. CARDIOLOGY STUDIES EKG was reviewed and showed atrial fibrillation with rapid ventricular response, left axis, nonspecific ST changes. Echocardiogram showed hypodynamic left ventricular function with an ejection fraction of 70% and severe aortic stenosis. LABORATORY DATA Hemoglobin 13.3, potassium 3.9, creatinine 0.6, AST 51, ALT 40. CK 593, CK MB index normal at 125. Troponin 2.08. DIAGNOSES 1. Atrial fibrillation with rapid ventricular response 2. Subdural hematoma related to recent fall 3. Failure to thrive 4. Smoking. 5. Regular alcohol use. 6. Severe aortic stenosis DISPOSITION Ms. Devries is found to have atrial fibrillation with rapid ventricular response. Her heart rate is now better controlled with IV Diltiazem and digoxin. Anticoagulation is contraindicated due to recent fall and subdural hematoma. She was found to have hyperdynamic left ventricular function and severe aortic stenosis. She will be monitored on telemetry. I will follow her for cardiology during her hospitalization. MD TERESITA Murray/ /7:04 PM /10:07 PM [facility]
[2017-02-01] VITALS (9 sets, daily range): BP systolic 134–170; BP diastolic 63–114; PULSE 68–150; RESP 21–27; TEMP 98–98.9; O2SAT 90–98
[2017-02-01] MEDS: hydrALAZINE HCL 20 MG/ML VIAL IV PUSH PRN ×2 (01:11→07:15)
[2017-02-01] MEDS ORDERED: levETIRAcetam INJ 500 MG in SODIUM CHLORIDE 0.9% INJ 100 ML IV SCH (02:00)
[2017-02-01] MEDS: SODIUM CHLOR 0.9% 1000 ML INJ 1,000 ML IV SCH (03:30)
[2017-02-01] MEDS ORDERED: CHLORHEXIDINE GLUCONATE 2 % 1 PACK (2 CLOTHS) TOP SCH (04:00)
[2017-02-01 04:41] LABS: AUTOMATED NEUTROPHIL # 10.5 TH/MM3 (1.8-7.7); BASOPHIL % 0.4 % (0.0-2.0); EOSINOPHIL % 0.2 % (0.0-4.0); HEMATOCRIT 33.9 % (35.0-46.0); HEMO FLAGS DIFF FINAL; LYMPH % 3.9 % (9.0-44.0); LYMPHOCYTE # 0.5 TH/MM3 (1.0-4.8); MEAN CORPUSCULAR HEMOGLOBIN 33.9 PG (27.0-34.0); MEAN CORPUSCULAR HGB CONC 33.6 % (32.0-36.0); MONO % 4.7 % (0.0-8.0); NEUT % 90.8 % (16.0-70.0); PLATELET COUNT 204 TH/MM3 (150-450); RED BLOOD COUNT 3.36 MIL/MM3 (4.00-5.30); WHITE BLOOD COUNT 11.6 TH/MM3 (4.0-11.0)
[2017-02-01 04:50] LABS: APTT (PATIENT) 26.8 SEC (24.3-30.1); PROTHROMBIN TIME - PATIENT 11.2 SEC (9.8-11.6)
[2017-02-01 05:08] LABS: ANION GAP 9 MEQ/L (5-15); AST (GOT) 33 U/L (15-37); BICARBONATE 23.1 MEQ/L (21.0-32.0); BLOOD UREA NITROGEN 17 MG/DL (7-18); CHLORIDE 112 MEQ/L (98-107); GLOMERULAR FILTRATION RATE 111 ML/MIN (>89); POTASSIUM 3.9 MEQ/L (3.5-5.1); SODIUM (NA) 144 MEQ/L (136-145)
[2017-02-01 05:22] LABS: ALKALINE PHOSPHATASE 70 U/L (45-117); ALT (GPT) 34 U/L (10-53); DIGOXIN 1.5 NG/ML (0.8-2.0); TOTAL BILIRUBIN ADULT 0.8 MG/DL (0.2-1.0)
--- NOTE | 2017-02-01 05:22 | RADRPT ---
EXAM DATE/TIME: 02/01/2017 05:09 [place] COMPARISON: CT BRAIN W/O CONTRAST, January 31, 2017, 8:23. INDICATIONS : Follow up subdural hematoma. RADIATION DOSE: 56.35 CTDIvol (mGy) MEDICAL HISTORY : None SURGICAL HISTORY : Hysterectomy. ENCOUNTER: Subsequent ACUITY: 1 day PAIN SCALE: Non-responsive LOCATION: cranial TECHNIQUE: Multiple contiguous axial images were obtained of the head. Using automated exposure control and adj ustment of the mA and/or kV according to patient size, radiation dose was kept as low as reasonably a chievable to obtain optimal diagnostic quality images. FINDINGS: Subdural blood along the right convexity again noted and measures about 4 mm in maximal thickness. Th ere is mild mass effect and about 5 mm of leftward midline shift again noted, also unchanged. No new blood. No mass demonstrated. No evidence of an acute ischemic event. 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 CONCLUSION: No significant change right subdural hematoma and 5 mm of leftward midline shift. Alvin Jacob MD on February 01, 2017 at 5:19 Board Certified Radiologist. This report was verified electronically.
[2017-02-01] MEDS: INSULIN NovoLIN REGULAR SUPPLEMENTAL SCALE SQ SCH ×3 (05:42→12:22)
[2017-02-01] MEDS ORDERED: MULTIVITAMIN TAB PO SCH (09:00)
[2017-02-01] MEDS ORDERED: PANTOPRAZOLE SODIUM 40 MG VIAL IV SCH (09:00)
[2017-02-01] MEDS ORDERED: THIAMINE INJ 100 MG in SODIUM CHLORIDE 0.9% INJ 100 ML IV SCH (09:00)
[2017-02-01] MEDS: SODIUM CHLORIDE 0.9% FLUSH 10 ML FLUSH IV FLUSH SCH ×2 (09:00→22:14)
[2017-02-01] MEDS ORDERED: FOLIC ACID 1 MG TAB PO SCH (09:00)
[2017-02-01] MEDS ORDERED: PANTOPRAZOLE SODIUM 40 MG VIAL IVP SCH (09:00)
[2017-02-01] MEDS: ARTIFICIAL TEARS OPTH SOLN 15 ML BTL EACH EYE SCH ×3 (09:00→16:52)
[2017-02-01] MEDS: DOCUSATE SODIUM 100 MG CAP PO SCH (10:22)
--- NOTE | 2017-02-01 12:39 | HHI.NSPN ---
Note Status Status: Progress Note Interval History Interval History 02/01: 81 year old with a small acute right convexity subdural hematoma with approximately 5mm right to left midline shift.Other findings compatible with old infarcts in the right thalamus and left internal capsule. Patient is DNR. Family requested hospice today. Labs, Micro, & Vital Signs Results Date Time Temp Pulse Resp B/P Pulse Ox O2 Delivery O2 Flow Rate FiO2 02/01/17 12:00 98.1 75 27 151/67 90 02/01/17 08:00 98.0 72 22 136/63 90 02/01/17 07:00 72 02/01/17 07:00 90 Nasal Cannula 4.00 02/01/17 04:00 98.1 72 21 135/63 97 02/01/17 00:00 98.7 68 21 134/63 95 01/31/17 23:00 64 01/31/17 21:39 96 Nasal Cannula 4.00 01/31/17 20:00 98.9 98 26 121/51 96 01/31/17 19:00 Nasal Cannula 4.00 01/31/17 16:00 98.6 108 26 170/70 96 01/31/17 15:00 119 01/31/17 13:45 98.4 119 24 117/70 98 01/31/17 13:00 110 14 110/69 98 Room Air 02/01/17 07:00 Intake Total 710 ml Balance 710 ml Constitutional Vital Signs Date Time Temp Pulse Resp B/P Pulse Ox O2 Delivery O2 Flow Rate FiO2 02/01/17 12:00 98.1 75 27 151/67 90 02/01/17 08:00 98.0 72 22 136/63 90 02/01/17 07:00 72 02/01/17 07:00 90 Nasal Cannula 4.00 02/01/17 04:00 98.1 72 21 135/63 97 02/01/17 00:00 98.7 68 21 134/63 95 01/31/17 23:00 64 01/31/17 21:39 96 Nasal Cannula 4.00 01/31/17 20:00 98.9 98 26 121/51 96 01/31/17 19:00 Nasal Cannula 4.00 01/31/17 16:00 98.6 108 26 170/70 96 01/31/17 15:00 119 01/31/17 13:45 98.4 119 24 117/70 98 01/31/17 13:00 110 14 110/69 98 Room Air 02/01/17 07:00 Intake Total 710 ml Balance 710 ml Review of Systems/Exam Exam Awake, alert, follows simple commands Pupils are equal and reactive. Extraocular movements are intact Strength is symmetric in bilateral upper and lower extremities however is limited on the right upper extremity due to right shoulder pain Medications Current Medications Active Medications Acetaminophen (Tylenol) 650 mg Q4H PRN PO; Start 01/31/17 at 13:15 Acetaminophen 650 mg 650 mg Q4H PRN RECTAL; Start 01/31/17 at 13:15 Artificial Tears (Tears Naturale Opth Soln) 1 drop TID EACH EYE; Start 01/31/17 at 18:00 Chlorhexidine Gluconate (Chlorhexidine 2% Cloth) 3 pack UNSCH PRN TOP; Start at 13:30 Chlorhexidine Gluconate (Chlorhexidine 2% Cloth) 3 pack Taper DAILY@04 TOP Last administered on 02/01/17 04:00; Admin Dose 3 PACK; Start 02/01/17 at 04:00; Stop 01/28/18 at 03:59 Dextrose (D50w (Vial) Inj) 25 ml UNSCH PRN IV PUSH; Start 01/31/17 at 13:30 Digoxin (Lanoxin Inj) 0.25 mg ONCE ONCE IV PUSH Last administered on 01/31/17 14:24; Admin Dose 0.25 MG; Start 01/31/17 at 14:00; Stop 01/31/17 at 14:01; Status DC Digoxin (Lanoxin Inj) 0.25 mg ONCE ONCE IV PUSH Last administered on 01/31/17 20:57; Admin Dose 0.25 MG; Start 01/31/17 at 20:00; Stop 01/31/17 at 20:01; Status DC Docusate Sodium (Colace) 100 mg BID PO Last administered on 02/01/17 10:22; Admin Dose 100 MG; Start 01/31/17 at 21:00 Folic Acid (Folate) 1 mg DAILY PO Last administered on 02/01/17 10:23; Admin Dose 1 MG; Start 02/01/17 at 09:00 Folic Acid (Folate) 1 mg ONCE ONCE PO Last administered on 01/31/17 14:24; Admin Dose 1 MG; Start 01/31/17 at 13:30; Stop 01/31/17 at 13:31; Status DC Glucagon (Glucagon Inj) 1 mg UNSCH PRN OTHER; Start 01/31/17 at 13:30 Hydralazine HCl (Apresoline Inj) 10 mg Q1HR PRN IV PUSH Last administered on 07:15; Admin Dose 10 MG; Start 01/31/17 at 13:30 Insulin Human Regular 1 1 Q6HR SQ; Start 01/31/17 at 18:00 Iohexol (Omnipaque 350 Inj) 80 ml STK-MED ONCE IV Last administered on 16:02; Admin Dose 80 ML; Start 01/31/17 at 16:02; Stop 01/31/17 at 16:03; Status DC Labetalol HCl 10 mg 10 mg Q1HR PRN IV Last administered on 01/31/17 21:32; Admin Dose 10 MG; Start 01/31/17 at 13:15 Levetriacetam 100 ml @ 400 mls/hr ONCE ONCE IV Last administered on 01/31/17 14:25; Admin Dose 400 MLS/HR; Start 01/31/17 at 13:15; Stop 01/31/17 at 13:29; Status DC Levetriacetam/ Sodium Chloride (Keppra Inj/NS Inj) 105 ml @ 400 mls/hr Q12H IV Last administered on 02/01/17 02:00; Admin Dose 400 MLS/HR; Start 02/01/17 at 02:00 Miscellaneous Information 1 Q361D XX Last administered on 01/31/17 14:25; Admin Dose 1; Start 01/31/17 at 13:30 Multivitamins (Theragran) 1 tab DAILY PO Last administered on 02/01/17 10:23; Admin Dose 1 TAB; Start 02/01/17 at 09:00 Nicardipine HCl/ Sodium Chloride (Cardene Inj/NS 250 ml Inj) 260 ml @ 0 mls/hr TITRATE IV Last administered on 01/31/17 14:26; Admin Dose 0 MLS/HR; Start at 13:15 Nitroglycerin (Nitroglycerin 2% Oint) 1 inch Q6HR PRN TOPICAL; Start 01/31/17 at 13:30 Ondansetron HCl (Zofran Inj) 4 mg Q6H PRN IV; Start 01/31/17 at 13:15 Ondansetron HCl (Zofran Inj) 4 mg Q6H PRN IV; Start 01/31/17 at 13:30 Pantoprazole Sodium (Protonix Inj) 40 mg DAILY IV Last administered on 10:23; Admin Dose 40 MG; Start 02/01/17 at 09:00 Pantoprazole Sodium (Protonix Inj) 40 mg DAILY IVP; Start 02/01/17 at 09:00 Sennosides (Senokot) 17.2 mg Q12H PRN PO; Start 01/31/17 at 13:30 Sodium Chloride (NS 1000 ml Inj) 1,000 ml @ 70 mls/hr [id number] IV Last administered on 02/01/17 03:30; Admin Dose 70 MLS/HR; Start 01/31/17 at 13:12 Sodium Chloride (NS Flush) 2 ml BID IV FLUSH Last administered on 02/01/17 09: 00; Admin Dose 2 ML; Start 01/31/17 at 21:00 Sodium Chloride (NS Flush) 2 ml BID IV FLUSH; Start 01/31/17 at 21:00; Status UNV Sodium Chloride (NS Flush) 2 ml UNSCH PRN IV FLUSH; Start 01/31/17 at 13:15 Sodium Chloride (NS Flush) 2 ml UNSCH PRN IV FLUSH; Start 01/31/17 at 13:30; Status UNV Thiamine HCl 100 mg/Sodium Chloride 101 ml @ 101 mls/hr ONCE ONCE IV Last administered on 01/31/17 16:08; Admin Dose 101 MLS/HR; Start 01/31/17 at 13:30 ; Stop 01/31/17 at 14:29; Status DC Thiamine HCl/ Sodium Chloride (Thiamine Inj/NS Inj) 101 ml @ 101 mls/hr DAILY IV Last administered on 02/01/17 10:24; Admin Dose 101 MLS/HR; Start 02/01/17 at 09:00 Medical Decision Making MDM Remarks 81 year old with history of hypertension and failure to thrive and bed bound for several months. Has a small acute right convexity subdural hematoma with approximately 5mm right to left midline shift. Family requested hospice and I agree with the plan. Plan Plan Remarks No need for neurosurgical intervention. Continue Keppra for seizure prophylaxis Consultaion with Palliative medicine as requested by medicine. Dagoberto Witt MD Feb 01, 2017 12:39
--- NOTE | 2017-02-01 13:29 | HHI.CCPN ---
Subjective Remarks/Hospital Course 81-year-old female. Date of admission 01/31/2017. Past medical history includes alcohol use, tobaccoism, otherwise unremarkable. Does have history upper GI bleed/gastric ulcer 2011. She has had a prolonged decline in function/failure to thrive and is been essentially bedbound times several months. She presents to [facility] via her family with chief complaint of fall yesterday when she struck the left side of her head after unwitnessed fall at home.. There is an abrasion of her left eyelid. CT head revealed a 4 mm right subdural hematoma at the central convex with a 5 mm right to left shift/ subfalcine. 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 She is a white cell count 11,000. Elevated blood sugar 170. Otherwise remainder of the left is unremarkable. Upon presentation patient was noted be in A. fib with RVR. Given 10 mg Cardizem ICD and start a Cardizem drip at 5 an hour. TSH within normal limits. Troponin and magnesium pending. Echocardiogram is ordered. Neurosurgery was contacted by ED physician. Will be seeing consultation. We are asked to admit. Upon presentation, patient is currently awake and alert. Heart rate better controlled in the 1 teens. Subjective weakness on the left side otherwise unremarkable exam SUBJ: 02/01: CT head unchanged SDH. Family requests hospice, consult placed Objective Vital Signs Date Time Temp Pulse Resp B/P Pulse Ox O2 Delivery O2 Flow Rate FiO2 02/01/17 12:00 98.1 75 27 151/67 90 02/01/17 07:00 Nasal Cannula 4.00 Intake and Output 01/31/17 01/31/17 02/01/17 08:00 16:00 00:00 Intake Total 50 ml 0 ml Balance 50 ml 0 ml Result Diagram: 02/01/17 0405 02/01/17 0405 Imaging Last Impressions Head CT 01/31/17 0000 Signed Impressions: Service Date/Time: Tuesday, January 31, 2017 08:23 - CONCLUSION: 1. 4 mm right subdural hematoma over the cerebral convexity with a 5 mm right to left subfalcine shift. 2. Chronic changes of cortical and central atrophy, moderately severe periventricular small vessel ischemic demyelination and old lacunar type infarcts in the right thalamus and left anterior limb of the internal capsule. 3. Soft tissue density in the external auditory canals bilaterally. While this likely represents cerumen, with a recent history of trauma, I cannot exclude thrombus. Please correlate with clinical presentation/examination. Mina Jo MD Objective Remarks GENERAL: 81-year-old female, resting in bed in no acute distress SKIN: Warm and dry. Abrasion of left eye/evolving. Right greater than left below the knee necrotic ulceration area. Noted multiple bruising left elbow with open sores. Large ecchymoses right humerus. HEAD: Normocephalic. EYES: Pupils equal and round about 2-3 mm bilaterally and reactive. No scleral icterus. No injection or drainage. ENT: No nasal bleeding or discharge. Mucous membranes pink and moist. Bilateral cerumen impaction. Oropharynx with erythema. NECK: Trachea midline. No JVD. No lymphadenopathy, or bruit CARDIOVASCULAR: Tachycardia, IR. S1, S2 without murmur RESPIRATORY: Clear to auscultation bilaterally without wheezes rales or rhonchi. Breath sounds equal bilaterally. GASTROINTESTINAL: Abdomen soft, non-tender, nondistended. Will active bowel sounds. MUSCULOSKELETAL: Extremities with old right humerus fracture. No edema. See skin NEUROLOGICAL: Somnolent. Tongue might deviate left but difficult to assess. Strength appears weaker on Left. A/P Assessment and Plan Neuro/Psych: Right 4 mm subdural hematoma/central convex Failure to thrive Left anterior capsule/right thalamus lacunar infarct/old EtOH CT head revealed a right subdural hematoma/4 mm of the central convexity with a 5 mm right to left subfalcine shift. Severe ischemic white matter changes. Old left anterior capsule/right thalamus lacunar infarct. Neurosurgery -no surgical intervention Repeat repeat CT head today stable Neuro checks Thiamine/folate/multivitamin daily for EtOH use Monitor for DTs CV: Atrial fibrillation with rapid ventricular response Currently in Cardizem drip at 10 mg an hour for heart rate management-DC cardizem IV metoprolol 2.5 mg every 6 hours s/p 2 doses of digoxin 0.25 mg IV interval 6 hours each and check level in a.m. Echocardiogram ordered-Dc as patient is going hospice Troponins elevation-not a candidate for intervention Goal keep systolic blood pressure less than 150 with subdural hematoma Resp: Tobaccoism Nasal cannula to maintain saturations greater than equal to 92% Incentive spirometry while awake Head of bed at 30 GI: Patient is currently nothing by mouth Protonix for GI prophylaxis Colace/as needed Senokot for bowel regimen : Vernon has been placed for accurate I's and O's in a critically ill patient Endo: Hyperglycemia Sliding-scale insulin to maintain euglycemia/low regimen with Accu-Cheks every 6 hours Renal: Mild rhabdo likely secondary to fall Creatinine currently within normal limits Accurate I's and O's Monitor urine output On normal saline at 84 cc an hour Repeat CPK in a.m. Heme: Leukocytosis Macrocytosis Follow-up CBC daily. Coags within normal limits ID: Monitor for infection UA negative FEN: Replace electrolytes as clinically indicated MSK: Right upper extremity swelling Bilateral lower leg chronic wounds Will CT C-spine/lumbar and thoracic spine along with chest/abdomen and pelvis CT right shoulder rule out dislocation Doppler right upper extremity Wound care evaluate and treat Access - Utilize peripheral IV. Central line if indicated Prophylaxis - GI - Protonix - DVT - SCDs/pharmacological prophylaxis contraindicated with subdural hematoma Critical Care: Level 2 Consult hospitalist to assume care if inpatient hospice. Hospice consulted Erin Esquivel MD Feb 01, 2017 13:29
[2017-02-01] MEDS: METOPROLOL TARTRATE 5 MG/5 ML VIAL IV PUSH SCH ×2 (14:24→20:00)
--- NOTE | 2017-02-01 18:13 | PD.CARD.PN ---
Subjective Subjective Remarks Somnolent, no CP or SOB Objective Medications Current Medications Medications (Trade) Dose Ordered Sig/Valerio Route Start Time Stop Time Status Last Admin (NS Flush) 2 ml UNSCH PRN IV FLUSH 01/31/17 13:15 (NS Flush) 2 ml BID IV FLUSH 01/31/17 21:00 02/01/17 09:00 (Zofran Inj) 4 mg Q6H PRN IV 01/31/17 13:15 (Tears Naturale Opth Soln) 1 drop TID EACH EYE 01/31/17 18:00 (Zofran Inj) 4 mg Q6H PRN IV 01/31/17 13:30 Miscellaneous Information 1 Q361D XX 01/31/17 13:30 01/31/17 14:25 (Chlorhexidine 2% Cloth) 3 pack Taper DAILY@04 TOP 02/01/17 04:00 01/28/18 03:59 02/01/17 04:00 (Chlorhexidine 2% Cloth) 3 pack UNSCH PRN TOP 01/31/17 13:30 (Lopressor Inj) 2.5 mg Q6H IV PUSH 02/01/17 14:00 02/01/17 14:24 Vital Signs / I&O Vital Signs Date Time Temp Pulse Resp B/P Pulse Ox O2 Delivery O2 Flow Rate FiO2 02/01/17 17:06 98.0 75 22 170/72 98 02/01/17 15:00 77 02/01/17 12:26 96 Simple Mask 6.00 02/01/17 12:00 98.1 75 27 151/67 90 02/01/17 08:00 98.0 72 22 136/63 90 02/01/17 07:00 72 02/01/17 07:00 90 Nasal Cannula 4.00 02/01/17 04:00 98.1 72 21 135/63 97 02/01/17 00:00 98.7 68 21 134/63 95 01/31/17 23:00 64 01/31/17 21:39 96 Nasal Cannula 4.00 01/31/17 20:00 98.9 98 26 121/51 96 01/31/17 19:00 Nasal Cannula 4.00 I/O 01/31/17 01/31/17 01/31/17 02/01/17 02/01/17 02/01/17 07:00 15:00 23:00 07:00 15:00 23:00 Intake Total 50 ml 0 ml 660 ml 100 ml Balance 50 ml 0 ml 660 ml 100 ml Intake Oral 0 ml 0 ml 660 ml 100 ml IV Total 50 ml # Voids 1 3 2 2 Physical Exam GENERAL: Sleeping, arousable SKIN: Warm and dry. HEAD: Normocephalic. EYES: No scleral icterus. No injection or drainage. NECK: Supple, trachea midline. No JVD or lymphadenopathy. CARDIOVASCULAR: Irregular, no murmurs, gallops, or rubs. RESPIRATORY: Breath sounds equal bilaterally. No accessory muscle use. GASTROINTESTINAL: Abdomen soft, non-tender, nondistended. MUSCULOSKELETAL: No cyanosis, or edema. Bilat LE wounds. Laboratory Laboratory Tests Test 01/31/17 02/01/17 22:50 04:05 Troponin I 1.74 NG/ML 1.71 NG/ML White Blood Count 11.6 TH/MM3 Red Blood Count 3.36 MIL/MM3 Hemoglobin 11.4 GM/DL Hematocrit 33.9 % Mean Corpuscular Volume 101.0 FL Mean Corpuscular Hemoglobin 33.9 PG Mean Corpuscular Hemoglobin 33.6 % Concent Red Cell Distribution Width 15.0 % Platelet Count 204 TH/MM3 Mean Platelet Volume 9.3 FL Neutrophils (%) (Auto) 90.8 % Lymphocytes (%) (Auto) 3.9 % Monocytes (%) (Auto) 4.7 % Eosinophils (%) (Auto) 0.2 % Basophils (%) (Auto) 0.4 % Neutrophils # (Auto) 10.5 TH/MM3 Lymphocytes # (Auto) 0.5 TH/MM3 Monocytes # (Auto) 0.5 TH/MM3 Eosinophils # (Auto) 0.0 TH/MM3 Basophils # (Auto) 0.0 TH/MM3 CBC Comment DIFF FINAL Differential Comment Prothrombin Time 11.2 SEC Prothromb Time International 1.0 RATIO Ratio Activated Partial 26.8 SEC Thromboplast Time Fibrinogen 286 mg/dL Sodium Level 144 MEQ/L Potassium Level 3.9 MEQ/L Chloride Level 112 MEQ/L Carbon Dioxide Level 23.1 MEQ/L Anion Gap 9 MEQ/L Blood Urea Nitrogen 17 MG/DL Creatinine 0.53 MG/DL Estimat Glomerular Filtration 111 ML/MIN Rate Random Glucose 112 MG/DL Calcium Level 8.8 MG/DL Total Bilirubin 0.8 MG/DL Aspartate Amino Transf 33 U/L (AST/SGOT) Alanine Aminotransferase 34 U/L (ALT/SGPT) Alkaline Phosphatase 70 U/L Total Protein 6.6 GM/DL Albumin 3.0 GM/DL Digoxin Level 1.5 NG/ML Imaging Last Impressions Head CT 02/01/17 Signed Impressions: Service Date/Time: Wednesday, February 01, 2017 05:09 - CONCLUSION: No significant change right subdural hematoma and 5 mm of leftward midline shift. Alvin Jacob MD Upper Extremity Ultrasound 01/31/17 Signed Impressions: Service Date/Time: Tuesday, January 31, 2017 19:31 - CONCLUSION: No DVT. Alvin Roche MD Upper Extremity CT 01/31/17 0000 Signed Impressions: Service Date/Time: Tuesday, January 31, 2017 15:13 - CONCLUSION: 1. Old fracture deformity of the right humerus. 2. No acute fracture or malalignment. 3. Small to moderate right pleural effusion. Tim Rivers MD Lumbar Spine CT 01/31/17 0000 Signed Impressions: Service Date/Time: Tuesday, January 31, 2017 15:15 - CONCLUSION: 1. No acute fracture or malalignment. 2. Mild disc bulges at the L4-5 and L5-S1 levels 3. Osteopenia and degenerative joint changes involving the lower facets. Tim Rivers MD Chest X-Ray 01/31/17 Signed Impressions: Service Date/Time: Tuesday, January 31, 2017 14:11 - CONCLUSION: Cardiomegaly with mild to moderate congestive failure. Placido Mantilla MD FACR Chest CT 01/31/17 0000 Signed Impressions: Service Date/Time: Tuesday, January 31, 2017 15:15 - CONCLUSION: 1. Old fracture deformities of the right humerus again noted. 2. No acute fracture or malalignment. 3. Bilateral pleural effusions right greater than left with mild consolidation in the posterior lung bases. Tim Rivers MD Cervical Spine CT 01/31/17 0000 Signed Impressions: Service Date/Time: Tuesday, January 31, 2017 15:13 - CONCLUSION: 1. Moderate degenerative changes as described above. There is no evidence of acute fracture. Jaguar Valero MD Abdomen/Pelvis CT 01/31/17 0000 Signed Impressions: Service Date/Time: Tuesday, January 31, 2017 15:15 - CONCLUSION: 1. No evidence of visceral injury or fracture. 2. Nonspecific bowel gas pattern which appears nonobstructive with moderate amount of stool distally which could indicate constipation. 3. Bilateral pleural effusions right greater than left with mild consolidation in the lung bases. Tim Rivers MD Assessment and Plan Problem List: (1) Atrial fibrillation with RVR (2) Subdural hematoma, post-traumatic (3) Failure to thrive in adult (4) Tobacco abuse (5) Alcohol use (6) Severe aortic stenosis Assessment and Plan Continue current program, AF rate well controlled. Not a candidate for full anticoagulation due to subdural hematoma related to recent fall. Increase activity. Problem Qualifiers (1) Subdural hematoma, post-traumatic: Qualified Code: S06.5X0A - Subdural hematoma, post-traumatic, without LOC, initial encounter Erick Lewis MD Feb 01, 2017 18:13
--- NOTE | 2017-02-01 19:22 | EKG ---
Date Performed: 01/31/2017 Time Performed: 17:01:26 PTAGE: 81 years EKG: ATRIAL FIBRILLATION LEFT ANTERIOR FASCICULAR BLOCK SEPTAL MYOCARDIAL INFARCTION , PROBABLY OLD MODERATE T-WAVE ABNORMALITY PREVIOUS TRACING : 01/31/2017 07.26 Compared to the previous tracing rate better controll ed DOCTOR: Erick Lewis Interpretating Date/Time 02/01/2017 19:21:12
--- NOTE | 2017-02-01 19:33 | EKG ---
Date Performed: 01/31/2017 Time Performed: 07:26:26 PTAGE: 81 years EKG: Atrial fibrillation with uncontrolled ventricular response Possible left anterior fascicula r block Possible septal infarct - age undetermined Lateral ST-T changes Abnormal ECG PREVIOUS TRACING : 11/04/2011 21.01 Compared to the previous tracing SR no longer present DOCTOR: Erick Lewis Interpretating Date/Time 02/01/2017 19:32:51
[2017-02-01] MEDS ORDERED: DILTIAZEM 125 MG/NS 100 ML IV SCH ×2 (23:45)
[2017-02-02 00:32] VITALS: O2SAT 96
--- NOTE | 2017-02-02 15:19 | HHI.DS ---
Discharge Summary Admission Date Jan 31, 2017 at 09:46 Discharge Date: Feb 02, 2017 Admitting Diagnosis subdural hematoma, afib with RVR (1) Subdural hematoma, post-traumatic ICD Code: S06.5X9A Diagnosis: Principal (2) Atrial fibrillation with RVR ICD Code: I48.91 Diagnosis: Principal (3) Failure to thrive in adult ICD Code: R62.7 Diagnosis: Principal (4) Leukocytosis ICD Code: D72.829 Diagnosis: Principal (5) Macrocytosis ICD Code: D75.89 Diagnosis: Principal (6) Hyperglycemia ICD Code: R73.9 Diagnosis: Principal (7) Tobacco abuse ICD Code: Z72.0 Diagnosis: Secondary (8) Excessive cerumen in both ear canals ICD Code: H61.23 Diagnosis: Secondary Brief History 81-year-old female. Date of admission 01/31/2017. Past medical history includes alcohol use, tobaccoism, otherwise unremarkable. Does have history upper GI bleed/gastric ulcer 2011. She has had a prolonged decline in function/failure to thrive and is been essentially bedbound times several months. She presents to [facility] via her family with chief complaint of fall yesterday when she struck the left side of her head after unwitnessed fall at home.. There is an abrasion of her left eyelid. CT head revealed a 4 mm right subdural hematoma at the central convex with a 5 mm right to left shift/ subfalcine. 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 She is a white cell count 11,000. Elevated blood sugar 170. Otherwise remainder of the left is unremarkable. Upon presentation patient was noted be in A. fib with RVR. Given 10 mg Cardizem ICD and start a Cardizem drip at 5 an hour. TSH within normal limits. Troponin and magnesium pending. Echocardiogram is ordered. Neurosurgery was contacted by ED physician. Will be seeing consultation. We are asked to admit Upon presentation, patient is currently awake and alert. Heart rate better controlled in the 1 teens. Subjective weakness on the left side otherwise unremarkable exam CBC/BMP: 02/01/17 0405 02/01/17 0405 Significant Findings Laboratory Tests Test 01/31/17 01/31/17 01/31/17 01/31/17 07:43 08:02 15:56 22:50 White Blood Count 11.1 TH/MM3 (4.0-11.0) Red Blood Count 3.93 MIL/MM3 (4.00-5.30) Mean Corpuscular Volume 102.4 FL (80.0-100.0) Neutrophils (%) (Auto) 82.8 % (16.0-70.0) Neutrophils # (Auto) 9.2 TH/MM3 (1.8-7.7) Blood Urea Nitrogen 23 MG/DL (7-18) Random Glucose 139 MG/DL (74-106) Aspartate Amino Transf 51 U/L (15-37) (AST/SGOT) Total Creatine Kinase 593 U/L (26-192) Creatine Kinase MB 8.8 NG/ML (0.5-3.6) Urine Protein 30 mg/dL (NEG-TRACE) Troponin I 2.08 NG/ML 1.74 NG/ML (0.02-0.05) (0.02-0.05) Test 02/01/17 04:05 White Blood Count 11.6 TH/MM3 (4.0-11.0) Red Blood Count 3.36 MIL/MM3 (4.00-5.30) Hemoglobin 11.4 GM/DL (11.6-15.3) Hematocrit 33.9 % (35.0-46.0) Mean Corpuscular Volume 101.0 FL (80.0-100.0) Neutrophils (%) (Auto) 90.8 % (16.0-70.0) Lymphocytes (%) (Auto) 3.9 % (9.0-44.0) Neutrophils # (Auto) 10.5 TH/MM3 (1.8-7.7) Lymphocytes # (Auto) 0.5 TH/MM3 (1.0-4.8) Chloride Level 112 MEQ/L (98-107) Random Glucose 112 MG/DL (74-106) Troponin I 1.71 NG/ML (0.02-0.05) Albumin 3.0 GM/DL (3.4-5.0) PE at Discharge GENERAL: 81-year-old female, resting in bed in no acute distress SKIN: Warm and dry. Abrasion of left eye/evolving. Right greater than left below the knee necrotic ulceration area. Noted multiple bruising left elbow with open sores. Large ecchymoses right humerus. HEAD: Normocephalic. EYES: Pupils equal and round about 2-3 mm bilaterally and reactive. No scleral icterus. No injection or drainage. ENT: No nasal bleeding or discharge. Mucous membranes pink and moist. Bilateral cerumen impaction. Oropharynx with erythema. NECK: Trachea midline. No JVD. No lymphadenopathy, or bruit CARDIOVASCULAR: Tachycardia, IR. S1, S2 without murmur RESPIRATORY: Clear to auscultation bilaterally without wheezes rales or rhonchi. Breath sounds equal bilaterally. GASTROINTESTINAL: Abdomen soft, non-tender, nondistended. Will active bowel sounds. MUSCULOSKELETAL: Extremities with old right humerus fracture. No edema. See skin NEUROLOGICAL: Somnolent. Tongue might deviate left but difficult to assess. Strength appears weaker on Left. Transfer Summary See hospital course Hospital Course 81-year-old female. Date of admission 01/31/2017. Past medical history includes alcohol use, tobaccoism, history upper GI bleed/gastric ulcer 2011. She has had a prolonged decline in function/failure to thrive and is been essentially bedbound times several months. Presented to [facility] via her family after a fall yesterday when she struck the left side of her head after unwitnessed fall at home. 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 She is a white cell count 11 ,000. Elevated blood sugar 170. Upon presentation patient was noted be in A. fib with RVR. Given 10 mg Cardizem IV and Cardizem drip at 5 mg per hour. TSH within normal limits. Troponin and magnesium pending. Echocardiogram is ordered. Neurosurgery was contacted by ED physician. Will be seeing consultation. We are asked to admit. Upon presentation, patient is currently awake and alert. Heart rate better controlled in the 1 teens. Subjective weakness on the left side otherwise unremarkable exam 02/01: CT head unchanged SDH. Family requests hospice, consult placed. Plan is to discharge to Hospice facility Pt Condition on Discharge: Guarded Discharge Disposition: Hospice/Med Facility Discharge Instructions DIET: Follow Instructions for: Nothing By Mouth Additional Diet Instructions: Can change diet once in hospice Activities you can perform: Continue Bedrest Erin Esquivel MD Feb 02, 2017 15:19
== END 2017-02-02 02:49 | disposition hospice, inpatient (51) | DRG 964 ==
LOC: PHED 07:13 → PHEDA 09:46 → N03B 13:29 → N05A 02-01 16:21 → HCIS 02-01 23:35
PROVIDERS: ADMIT Hospitalist; ATTEND Hospitalist
DX: S06.5X9A Traumatic subdural hemorrhage with loss of consciousness of unspecified duration, initial encounter (principal); E46 Unspecified protein-calorie malnutrition; Z68.1 Body mass index [BMI] 19.9 or less, adult; T79.6XXA Traumatic ischemia of muscle, initial encounter; W19.XXXA Unspecified fall, initial encounter; Y92.009 Unspecified place in unspecified non-institutional (private) residence as the place of occurrence of the external cause; I48.91 Unspecified atrial fibrillation; D75.89 Other specified diseases of blood and blood-forming organs; D72.829 Elevated white blood cell count, unspecified; R62.7 Adult failure to thrive; I35.0 Nonrheumatic aortic (valve) stenosis; S80.12XA Contusion of left lower leg, initial encounter; S80.11XA Contusion of right lower leg, initial encounter; S50.02XA Contusion of left elbow, initial encounter; S00.212A Abrasion of left eyelid and periocular area, initial encounter; R73.9 Hyperglycemia, unspecified; H61.23 Impacted cerumen, bilateral; F17.210 Nicotine dependence, cigarettes, uncomplicated; Z66 Do not resuscitate; Z51.5 Encounter for palliative care; Z72.89 Other problems related to lifestyle; Z87.11 Personal history of peptic ulcer disease
CPT/HCPCS: 70450; 71010; 71260; 72125; 72128; 72131; 73200; 74177; 80053; 80162; 81001; 82550; 82552; 82948; 83605; 83735; 84100; 84443; 84484; 85025; 85384; 85610; 85730; 86850; 86900; 86901; 87641; 93005; 93306; 93971; 96361; 96365; 96376; 99292; C9113; J0360; J1160; J1953; J3411; J7030; J7050; P9612; Q9967